=== PATIENT | female | born 1945 | race Caucasian/White ===

== ENCOUNTER 2018-05-25 20:26 | Emergency (ER) | payer MEDICARE, OTHER ==
[2018-05-25] MEDS: LIDOCAINE 1% (MDV) 20 ML INJ SC (23:00)
[2018-05-26] MEDS: DIPHTH/TET/ACEL PERTUSS (ADULT) 0.5 ML VIAL IM* (00:29)
== END 2018-05-26 01:34 | disposition home or self-care (01) ==
LOC: FTE 20:26
DX: S91.312A Laceration without foreign body, left foot, initial encounter (principal); E11.9 Type 2 diabetes mellitus without complications; X58.XXXA Exposure to other specified factors, initial encounter; Y92.9 Unspecified place or not applicable; Z23 Encounter for immunization
CPT/HCPCS: 12002; 73610; 90471; 90715; 99283-25